=== PATIENT | male | born 1990 | race African-American/Black ===

== ENCOUNTER 2017-04-05 18:39 | Emergency (ER) | payer MEDICAID ==
[~2017-04-05] VITALS: Ht 193 cm; Wt 108.9 kg
[~2017-04-05 18:39] MED LIST: CLINDAMYCIN HC300 MG ORAL; CYCLOBENZAPRINE10 MG ORAL; IBUPROFEN600 MG ORAL; NKM; NORCO 5-325 TA1 EACH ORAL
[2017-04-05] MEDS ORDERED: CLINDAMYCIN HC300 MG ORAL (19:15)
[2017-04-05 19:35] VITALS: BP 125/75
--- NOTE | 2017-04-05 21:32 | Emergency Room Report ---
History of Present Illness General Chief Complaint: Skin Rash/Abscess Source: Patient Present Illness HPI The patient is a 26 male presenting for left facial infection. He noticed this about a week ago. It has been growing in size. He states that he then popped it and noticed a white discharge with some bleeding. Pain decreased. Pain is now a 3/10 dull ache and does not radiate. Worse with touch. He denies any other symptoms including fever or chills Allergies: Coded Allergies: SULFA (SULFONAMIDE ANTIBIOTICS) (Unverified Allergy, Unknown, 10/22/13) Patient History Past Medical History: see triage record Pertinent Family History: none Reviewed Nursing Documentation: PMH: Agreed, PSxH: Agreed Nursing Documentation-PMH Past Medical History: No Stated History Review of Systems All Other Systems: negative except mentioned in HPI Physical Exam Vital Signs Date Time Temp Pulse Resp B/P (MAP) Pulse Ox O2 Delivery O2 Flow Rate FiO2 04/05/17 18:57 97.9 84 18 113/70 97 Room Air Sp02 EP Interpretation: reviewed, normal General Appearance: no apparent distress, alert, GCS 15, non-toxic Head: normocephalic, atraumatic Eyes: bilateral eye normal inspection, bilateral eye PERRL ENT: hearing grossly normal, normal pharynx, no angioedema, normal voice Neck: full range of motion, supple/symm/no masses Musculoskeletal: back normal, gait/station normal, normal range of motion, non- tender Neurologic: alert, oriented x3, responsive, motor strength/tone normal, sensory intact, speech normal Psychiatric: judgement/insight normal, memory normal, mood/affect normal, no suicidal/homicidal ideation Skin: rash - There is an approximately 3 cm in diameter abscess to the left face lateral to the eye. Tender to palpation. There is a central opening with scab. No discharge or bleeding. Nonfluctuant Lymphatic: no adenopathy Medical Decision Making PA Attestation Dr. Guaman is my supervising physician. Patient management was discussed with my supervising physician Diagnostic Impression: Primary Impression: Abscess ER Course The patient is a 26 male presenting for left facial infection Differential diagnoses considered but not limited to: abscess, cellulitis, insect bite PE: Afebrile. NAD There is an approximately 3 cm in diameter abscess to the left face lateral to the eye. Tender to palpation. There is a central opening with scab. No discharge or bleeding. Nonfluctuant Incision and drainage not indicated at this time. He'll be discharged home with oral antibiotics and given ER precautions to return for I&D Last Vital Signs Date Time Temp Pulse Resp B/P (MAP) Pulse Ox O2 Delivery O2 Flow Rate FiO2 04/05/17 19:35 97.9 78 18 125/75 97 Room Air Status: improved Disposition: HOME, SELF-CARE Condition: Improved Scripts Clindamycin Hcl (CLINDAMYCIN HCL) 300 Mg Capsule 300 MG ORAL FOUR TIMES A DAY, #28 CAP Prov: OMAR LYONS 04/05/17 Referrals: [facility],REFERRING (PCP) Patient Instructions: Abscess Additional Instructions: I discussed my findings with the patient. All questions and concerns have been answered. Treatment and medication compliance have been addressed. I advised the patient that they need to follow up with PMD in 3-5 days. Return to ED if symptoms worsen, new symptoms arise, or if needed for any reason. Patient verbalized understanding of discharge instructions. Please return for incision and drainage if you notice the infection getting larger and/or softer OMAR LYONS Apr 05, 2017 21:32
== END 2017-04-05 19:36 | disposition home or self-care (01) ==
LOC: EMR 19:20
DX: L02.01 Cutaneous abscess of face (principal)
CPT/HCPCS: 99283

== ENCOUNTER 2018-02-22 11:35 | Emergency (ER) | payer MEDICAID ==
[~2018-02-22] VITALS: Ht 193 cm; Wt 108.9 kg
[2018-02-22] MEDS ORDERED: ACETAMINOPHEN-1 EAC1 ORAL (12:01)
[2018-02-22] MEDS ORDERED: PENICILLIN V P500 MG PO (12:01)
[2018-02-22 12:06] VITALS: BP 127/78
[2018-02-22 12:07] VITALS: BP 127/78
--- NOTE | 2018-02-22 12:29 | Emergency Room Report ---
History of Present Illness General Chief Complaint: Toothache Source: Patient Present Illness HPI Patient is a 27-year-old male presented after increased left upper toothache for the past 2-3 days. Patient gradual onset of symptoms. Patient reports having increased discomfort as well as gingival swelling. The patient reports having similar prior symptoms. He reports being a smoker. Denies any fever. He denies any the jaw pain. He denies any difficulty swallowing.The patient denies any sinus pain or difficulty breathing. He denies prior history of diabetes or HIV. Allergies: Coded Allergies: SULFA (SULFONAMIDE ANTIBIOTICS) (Unverified Allergy, Unknown, 10/22/13) Patient History Past Medical History: see triage record Reviewed Nursing Documentation: PMH: Agreed; PSxH: Agreed Nursing Documentation-PMH Past Medical History: No Stated History Review of Systems All Other Systems: negative except mentioned in HPI Physical Exam Vital Signs Date Time Temp Pulse Resp B/P (MAP) Pulse Ox O2 Delivery O2 Flow Rate FiO2 02/22/18 11:40 97.5 66 18 125/76 98 Room Air General Appearance: well appearing, no apparent distress, alert, GCS 15 Head: normocephalic, atraumatic ENT: hearing grossly normal, normal voice, other - left upper dental gingival swelling, cracked tooth Neck: full range of motion, supple Respiratory: no respiratory distress, speaking full sentences Neurologic: normal inspection, alert, oriented x3, normal gait Psychiatric: mood/affect normal Skin: no rash Medical Decision Making Diagnostic Impression: Primary Impression: Dental infection Last Vital Signs Date Time Temp Pulse Resp B/P (MAP) Pulse Ox O2 Delivery O2 Flow Rate FiO2 02/22/18 12:07 97.5 82 20 127/78 99 Room Air Disposition: HOME, SELF-CARE Condition: Stable Scripts Acetaminophen With Codeine (T#3) (TYLENOL #3 TAB*) Y Tab 1 TAB ORAL Q8H PRN for For Pain, #10 TAB Prov: Giorgio Hendrickson MD 02/22/18 Penicillin V Potassium* (PENVK*) 500 Mg Tablet 500 MG PO Q6H, #28 TAB 0 Refills Prov: Giorgio Hendrickson MD 02/22/18 Referrals: NON PHYSICIAN (PCP) Patient Instructions: Dental Pain Giorgio Hendrickson MD Feb 22, 2018 12:29
== END 2018-02-22 12:07 | disposition home or self-care (01) ==
LOC: EMR 11:46
DX: K04.7 Periapical abscess without sinus (principal); Z88.2 Allergy status to sulfonamides
CPT/HCPCS: 99282

== ENCOUNTER 2018-12-22 13:45 | Emergency (ER) | payer MEDICAID ==
[~2018-12-22] VITALS: Ht 193 cm; Wt 111.1 kg
[~2018-12-22 13:45] MED LIST changes: +ACETAMINOPHEN-1 EAC1 ORAL; +PENICILLIN V P500 MG PO
[2018-12-22 13:54] VITALS: BP 133/83
[2018-12-22 14:15] LABS: APPEARANCE,URINE CLEAR; BILIRUBIN, URINE NEGATIVE (NEGATIVE); GLUCOSE, URINE (UA) NEGATIVE (NEGATIVE); KETONES,URINE NEGATIVE (NEGATIVE); LEUKOCYTE ESTERASE ,URINE 1+ (NEGATIVE); NITRITE,URINE NEGATIVE (NEGATIVE); PH,URINE 6 (4.5-8.0); PROTEIN,URINE NEGATIVE (NEGATIVE); UROBILINOGEN,URINE NORMAL MG/DL (0.0-1.0)
[2018-12-22 14:16] LABS: COLOR,URINE YELLOW
[2018-12-22 14:21] LABS: BASOPHILS % (AUTO) 0.7 % (0.0-2.0); EOSINOPHILS % (AUTO) 0.4 % (0.0-3.0); HEMATOCRIT 45.8 % (42.0-52.0); HEMOGLOBIN 16.1 G/DL (14.2-18.0); LYMPHOCYTES % (AUTO) 13.4 % (20.0-45.0); MEAN CORPUSCULAR VOLUME 97 FL (80-99); MONOCYTES % (AUTO) 5.9 % (1.0-10.0); NEUTROPHILS % (AUTO) 79.6 % (45.0-75.0); PLATELET COUNT 207 K/UL (150-450); RED BLOOD COUNT 4.73 M/UL (4.70-6.10); RED CELL DISTRIBUTION WIDTH 10.7 % (11.6-14.8)
[2018-12-22 14:28] LABS: ANION GAP 7 mmol/L (5-15); BLOOD UREA NITROGEN 9 mg/dL (7-18); CALCIUM 9.1 MG/DL (8.5-10.1); CARBON DIOXIDE 29 MMOL/L (21-32); CHLORIDE 105 MMOL/L (98-107); CREATININE 1.1 MG/DL (0.55-1.30); POTASSIUM 4.2 MMOL/L (3.5-5.1); SODIUM 141 MMOL/L (136-145)
[2018-12-22 14:39] LABS: ALANINE AMINOTRANSFERASE 10 U/L (12-78); ALBUMIN 4.1 G/DL (3.4-5.0); ALBUMIN/GLOBULIN RATIO 1.1 (1.0-2.7); ALKALINE PHOSPHATASE 97 U/L (46-116); ASPARTATE AMINO TRANSFERASE 12 U/L (15-37); BILIRUBIN,TOTAL 1.6 MG/DL (0.2-1.0)
[2018-12-22 14:42] LABS: BILIRUBIN,DIRECT 0.2 MG/DL (0.0-0.3)
--- NOTE | 2018-12-22 15:11 | Emergency Room Report ---
History of Present Illness General Chief Complaint: Male Urogenital Problems Source: Patient Present Illness HPI 28-year-old male with no symptom past medical history here complaining of 1 week of pain and swelling and a mobile mass in his scrotum. Patient reports that he went to his primary care provider few days ago blood work was done which was within normal limits. Patient was put recently on antibiotics for an abscess in his back however finished antibiotic and does not recall the name. Denies trauma to the area, fever and chills, penile discharge, urinary frequency and dysuria. Reports that he is sexually active however denies having his partner having a similar mass. Immobile 1.5 cm mass is noted in the posterior penis the attachment point of the scrotum. She reports that the pain is now radiating to his left inguinal. Denies heavy physical activity, and lifting heavy objects. Has not taken medication for symptom relief. Allergies: Coded Allergies: SULFA (SULFONAMIDE ANTIBIOTICS) (Unverified Allergy, Unknown, 10/22/13) Patient History Past Medical History: see triage record Past Surgical History: unable to obtain Pertinent Family History: none Immunizations: UTD Reviewed Nursing Documentation: PMH: Agreed; PSxH: Agreed Nursing Documentation-PMH Past Medical History: No Stated History Review of Systems All Other Systems: negative except mentioned in HPI Physical Exam Vital Signs Date Time Temp Pulse Resp B/P (MAP) Pulse Ox O2 Delivery O2 Flow Rate FiO2 12/22/18 13:48 98.4 76 20 133/83 (100) 97 Room Air Sp02 EP Interpretation: reviewed, normal General Appearance: no apparent distress, alert, GCS 15, non-toxic Head: normocephalic, atraumatic Eyes: bilateral eye normal inspection, bilateral eye PERRL ENT: hearing grossly normal, normal pharynx, no angioedema, normal voice Neck: full range of motion, supple/symm/no masses Respiratory: chest non-tender, lungs clear, normal breath sounds, speaking full sentences Cardiovascular #1: regular rate, rhythm, no edema Gastrointestinal: normal bowel sounds, non tender, soft, non-distended, no guarding, no hernia, no rebound Genitourinary: no CVA tenderness, penis normal, other - 1.5 cm mobile mass noted in the posterior penis at this attachment point to the scrotum Musculoskeletal: normal inspection, back normal, digits/nails normal Neurologic: alert, oriented x3, responsive, motor strength/tone normal, sensory intact, speech normal Psychiatric: judgement/insight normal, memory normal, mood/affect normal, no suicidal/homicidal ideation Skin: no rash Lymphatic: inguinal node tender (L) Medical Decision Making PA Attestation Diagnosis and treatment plans were reviewed and discussed with my supervising physician Dr. Rico Diagnostic Impression: Primary Impression: Scrotal sebaceous cyst ER Course 28-year-old male with no symptom past medical history here complaining of 1 week of pain and swelling and a mobile mass in his scrotum. Patient reports that he went to his primary care provider few days ago blood work was done which was within normal limits. Patient was put recently on antibiotics for an abscess in his back however finished antibiotic and does not recall the name. Denies trauma to the area, fever and chills, penile discharge, urinary frequency and dysuria. Reports that he is sexually active however denies having his partner having a similar mass. Immobile 1.5 cm mass is noted in the posterior penis the attachment point of the scrotum. She reports that the pain is now radiating to his left inguinal. Denies heavy physical activity, and lifting heavy objects. Has not taken medication for symptom relief. Ddx considered but are not limited to: UTI, testicular torsion, epididymitis, sebaceous cyst, testicular cancer, sexually transmitted diseases such as chlamydia or gonorrhea Vital signs: are WNL, pt. is afebrile H&PE are most consistent with: Sebaceous cyst ORDERS: UA, GC and chlamydia, CBC, CMP, testicular ultrasound, doxycycline, ibuprofen ED INTERVENTIONS: None required at this time. DISCHARGE: At this time pt. is stable for d/c to home. Will provide printed patient care instructions, and any necessary prescriptions. Care plan and follow up instructions have been discussed with the patient prior to discharge. I spoke to the radiologist over the phone and he confirmed that it is most likely a sebaceous cyst and patient to follow-up with a urologist avoid strenuous physical activity take medication as directed patient reports that he has a pending urologist referral CT/MRI/US Diagnostic Results CT/MRI/US Diagnostic Results : Imaging Test Ordered: Testicular ultrasound Impression Sebaceous cyst, no torsion noted, no varicocele no hydrocele, left inguinal lymph nodes swelling most likely secondary to sebaceous cyst Last Vital Signs Date Time Temp Pulse Resp B/P (MAP) Pulse Ox O2 Delivery O2 Flow Rate FiO2 12/22/18 13:54 98.4 80 20 133/83 97 Room Air Disposition: HOME, SELF-CARE Condition: Stable Scripts Ibuprofen (Ibu) 800 Mg Tablet 800 MG PO BID, #20 TAB Prov: Janice Ramirez 12/22/18 Doxycycline Hyclate (DOXYCYCLINE HYCLATE) 100 Mg Tablet 100 MG PO BID for 7 Days, #14 TAB Prov: Janice Ramirez 12/22/18 Referrals: [facility],REFERRING (PCP) Patient Instructions: Scrotal Swelling Additional Instructions: Follow-up with urologist take medication as directed if worsening symptoms return to the emergency room avoid strenuous physical activity avoid lifting heavy objects do not try to irritate the affected area or apply pressure Janice Ramirez Dec 22, 2018 15:11
[2018-12-22] MEDS ORDERED: DOXYCYCLINE HY100 M6 PO (15:12)
[2018-12-22] MEDS ORDERED: IBU800 MG PO (15:12)
[2018-12-22 15:22] VITALS: BP 133/83
--- NOTE | 2018-12-22 16:19 | Diagnostic Imaging Report ---
Indication:Scrotal pain and palpable mass Technique: Real time grayscale and duplex Doppler imaging of the scrotum/penis performed. Comparison: None Findings: The area of clinical concern is the dorsal base of the penoscrotal junction, where the patient has noticed a painful mass. Ultrasound of this demonstrates area of subcutaneous prominence with slightly increased vascularity surrounding an anechoic focus measuring less than 1 cm consistent with a cyst. This cyst is superficial and just deep to the dermis and is likely a sebaceous cyst or other dermatologic or superficial subcutaneous cystic lesion. There is no soft tissue mass. The remainder of the examination is unremarkable. The scrotum itself is normal in appearance. The size, contour, and echogenicitiy of the testis appear normal bilaterally. There is no testicular mass or evidence of torsion. There is good doppler evidence of blood flow within both testes. Epididimi are unremarkable. Right testis measures 4.2 x 2.2 x 2.8 cm. Left testis 3.9 x 2.2 x 2.9 cm. Impression: 1 cm subcutaneous cystic structure with surrounding inflammation at the base of the penis corresponding to the area of clinical concern. This is likely a sebaceous cyst or other dermatologic or superficial subcutaneous cyst.
== END 2018-12-22 15:23 | disposition home or self-care (01) ==
LOC: EMR 14:20
DX: L72.3 Sebaceous cyst (principal); Z88.2 Allergy status to sulfonamides
CPT/HCPCS: 36415; 76870; 80053; 81001; 82248; 85025; 87491; 87590; Z7502; 99284

== ENCOUNTER 2018-12-23 01:38 | Emergency (ER) | payer MEDICAID ==
[~2018-12-23] VITALS: Ht 190.5 cm; Wt 111.1 kg
[~2018-12-23 01:38] MED LIST changes: +DOXYCYCLINE HY100 M6 PO; +IBU800 MG PO
[2018-12-23 02:00] VITALS: BP 129/80
--- NOTE | 2018-12-23 02:00 | NUR ---
ED Nurse Note: Patient walked into ED c/o skin tear located on the base of his penis, states that this has been an ongoing issue for several months, went to doctors and got an ultrasound and found nothing of importance, patient states that he awoke earlier this night with pain, rates his pain a 8/10, at time of arrival skin tear is not bleeding
--- NOTE | 2018-12-23 02:20 | Emergency Room Report ---
History of Present Illness General Chief Complaint: General Complaint Source: Patient Present Illness HPI Disclaimer: Please note that this report is being documented using [employer] technology. This can lead to erroneous entry secondary to incorrect interpretation by the dictating instrument. HPI: 28-year-old male seen in the emergency department earlier today for a sebaceous cyst presents for evaluation of cyst drainage and bleeding. Patient states that he has had a small mass at the base of his penis for several days and was seen for this in the emergency department earlier. Ultrasound showed a soft tissue swelling consistent with a sebaceous cyst and the patient was discharged home with NSAID pain medication as well as doxycycline. He has not yet started the doxycycline. He returns to the emergency department now stating that he accidentally scratched the area while sleeping and noted a bloody and clear fluid drainage. He is requesting reevaluation. Denies significant blood loss. Was able to control it with pressure. Denies significant purulent drainage. PMH: None PSH: None Allergies: Sulfa medication Social Hx: Denies drug or alcohol abuse Allergies: Coded Allergies: SULFA (SULFONAMIDE ANTIBIOTICS) (Unverified Allergy, Unknown, 12/23/18) Nursing Documentation-PMH Past Medical History: No Stated History Review of Systems All Other Systems: negative except mentioned in HPI Physical Exam Vital Signs Date Time Temp Pulse Resp B/P (MAP) Pulse Ox O2 Delivery O2 Flow Rate FiO2 12/23/18 01:52 98.6 74 16 129/80 (96) 96 Room Air General: Awake and alert, no acute distress HEENT: NC/AT. EOMI. Resp: Normal work of breathing. Abdomen: Abdomen is soft, nondistended. Nontender : Circumcised male. 1 x 2 cm area of induration at the base of the penis. Hemostatic with a small pinpoint scab. No active drainage or bleeding. Able to express serous fluid. Mild tenderness palpation. Skin: 1 x 2 cm area of induration over the scrotum as described above MSK: Normal tone and bulk. Moving all extremities. No obvious deformity. Neuro: Awake and alert. Mentating appropriately. Medical Decision Making Diagnostic Impression: Primary Impression: Wound check, abscess Additional Impression: Sebaceous cyst ER Course Is a 28-year-old male with recent diagnosis of a sebaceous cyst at the base of the penis presents for evaluation of the wound as it ruptured prior to arrival. No active bleeding, no significant blood loss reported. Mild serous fluid is able to be expressed but no significant purulence. 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 He can follow-up with his PMD as an outpatient. Does not require emergent imaging, labs or acute intervention at this time. We discussed reasons to return to the emergency department. He understands and agrees with this treatment plan. Last Vital Signs Date Time Temp Pulse Resp B/P (MAP) Pulse Ox O2 Delivery O2 Flow Rate FiO2 12/23/18 02:00 98.6 74 16 129/80 96 Room Air Disposition: HOME, SELF-CARE Condition: Stable Additional Instructions: Continue with your prescribed antibiotics (doxycycline) as instructed and follow -up with your clinic next week for reevaluation. If you notice persistent drainage, bleeding, spreading of the redness, worsening pain or any other major changes return to the emergency department for reevaluation. Demarco Redmond MD Dec 23, 2018 02:20
[2018-12-23 02:21] VITALS: BP 122/79
--- NOTE | 2018-12-23 02:22 | NUR ---
ER DISCHARGE NOTE: Patient is cleared to be discharged per ERMD, pt is aox4, on room air, with stable vital signs. pt was given dc and prescription instructions, pt was able to verbalize understanding, pt id band removed without complications. pt is able to ambulate with steady gait. pt took all belongings.
== END 2018-12-23 02:22 | disposition home or self-care (01) ==
LOC: EMR 02:14
DX: N50.89 Other specified disorders of the male genital organs (principal); Z88.2 Allergy status to sulfonamides
CPT/HCPCS: 99281

== ENCOUNTER 2019-01-05 23:31 | Emergency (ER) | payer MEDICAID ==
[~2019-01-05] VITALS: Ht 193 cm; Wt 104.3 kg
--- NOTE | 2019-01-05 23:46 | NUR ---
ED Nurse Note: Pt walked in c/o "popped cyst" on buttock area. noted a small pustule draining w/ blood and yellow pus on posterior right medical buttock area with swelling and redness and tenderness around. will cont monitor.
[2019-01-05 23:47] VITALS: BP 123/83
[2019-01-05] MEDS ORDERED: CEPHALEXIN500 M1 ORAL (23:47)
--- NOTE | 2019-01-05 23:47 | Emergency Room Report ---
History of Present Illness General Chief Complaint: Skin Rash/Abscess Source: Patient Present Illness HPI 28-year-old male presents with right perirectal buttock cyst that popped prior to arrival, he felt little fluid, no fever no chills no chest pain or shortness of breath, no aggravating or relieving factors severity is mild, symptoms are constant patient presents for evaluation Allergies: Coded Allergies: SULFA (SULFONAMIDE ANTIBIOTICS) (Unverified Allergy, Unknown, 12/23/18) Patient History Past Medical History: see triage record Reviewed Nursing Documentation: PMH: Agreed; PSxH: Agreed Nursing Documentation-PMH Past Medical History: No Stated History Review of Systems All Other Systems: negative except mentioned in HPI Physical Exam Vital Signs Date Time Temp Pulse Resp B/P (MAP) Pulse Ox O2 Delivery O2 Flow Rate FiO2 01/05/19 23:33 97.9 67 15 123/83 (96) 98 Room Air General Appearance: well appearing, no apparent distress Head: normocephalic, atraumatic ENT: hearing grossly normal, normal voice Neck: full range of motion, supple Respiratory: no respiratory distress, speaking full sentences Neurologic: alert, normal gait Psychiatric: mood/affect normal Skin: other - Left perirectal buttock abscess, less than 0.5 cm already draining Medical Decision Making Diagnostic Impression: Primary Impression: Perirectal abscess ER Course 28-year-old male presents with perirectal abscess that has already popped, not amenable to drainage, very small subcentimeter disposition home with return precautions will prescribe antibiotics Last Vital Signs Date Time Temp Pulse Resp B/P (MAP) Pulse Ox O2 Delivery O2 Flow Rate FiO2 01/05/19 23:33 97.9 67 15 123/83 (96) 98 Room Air Disposition: HOME, SELF-CARE Condition: Stable Scripts Cephalexin* (CEPHALEXIN*) 500 Mg Tablet 500 MG ORAL EVERY 6 HOURS, #28 CAP Prov: John Rico MD 01/05/19 Referrals: [facility] Patient Instructions: Perirectal Abscess Additional Instructions: The patient was provided with discharge instructions, notified to follow-up with a primary care doctor and or specialist in the next 24-48 hours, and to return to the ED if they have worsening of their symptoms. Please note that this report is being documented using [employer] technology. This can lead to erroneous entry secondary to incorrect interpretation by the dictating instrument. John Rico MD Jan 05, 2019 23:47
--- NOTE | 2019-01-05 23:48 | NUR ---
ED Nurse Note: pt cleared to be d/c per ermd, pt discharge and aftercare instruction provided w/ prescription, pt education done via discussion and handout, pt advised to follow up with pcp or return to ed if changes in condition, vss, ambulatory w/ steady gait, left w/ all belongings.
[2019-01-05 23:49] VITALS: BP 123/83
== END 2019-01-05 23:49 | disposition home or self-care (01) ==
LOC: EMR 23:40
DX: K61.1 Rectal abscess (principal); Z88.2 Allergy status to sulfonamides
CPT/HCPCS: 99282